=== PATIENT | female | born 1975 | race African-American/Black ===

== ENCOUNTER 2025-03-28 11:03 | Emergency (ER) | payer OTHER ==
[~2025-03-28] VITALS: Ht 167.6 cm; Wt 84.4 kg
[2025-03-28 11:49] VITALS: BP 141/98; PULSE 94; RESP 18; TEMP 98.1; O2SAT 99
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
[2025-03-28] MEDS: KETOROLAC TROMETH 60MG/2ML VIAL IM ONE (12:16)
[2025-03-28] MEDS ORDERED: METH-1182 PO (13:06)
[2025-03-28] MEDS ORDERED: IBUP-1456 PO (13:06)
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
== END 2025-03-28 13:16 | disposition home or self-care (01) ==
LOC: ER 11:03
DX: S16.1XXA Strain of muscle, fascia and tendon at neck level, initial encounter (principal); M51.379 Other intervertebral disc degeneration, lumbosacral region without mention of lumbar back pain or lower extremity pain; Z88.0 Allergy status to penicillin; Z79.1 Long term (current) use of non-steroidal anti-inflammatories (NSAID); V43.52XA Car driver injured in collision with other type car in traffic accident, initial encounter; Y93.89 Activity, other specified; Y92.488 Other paved roadways as the place of occurrence of the external cause; Y99.8 Other external cause status
CPT/HCPCS: 72040; 96372; 99283; J1885